=== PATIENT | male | born 1940 | race Caucasian/White ===

== ENCOUNTER 2018-12-28 09:15 | Emergency (ER) | payer MEDICARE ==
[~2018-12-28] VITALS: Ht 177.8 cm; Wt 86.4 kg
[~2018-12-28 09:15] MED LIST: ACET-2615 PO; ACET-3068 PO; ASPI81TA52 PO; CARV-50 PO; DOCU100C40 PO; FERR325T28 PO; FLO0.4C PO; GLIP5TAB26 PO; LISI-604 PO; METF1000 PO; MULT-38 PO; OMEP20TA23 PO; SIMV40TA4 PO
[2018-12-28 09:50] LABS: BASOPHILS % (AUTO) 0.4 % (0-1); EOSINOPHILS # (AUTO) 0.1 X10'3 (0-0.9); EOSINOPHILS % (AUTO) 1.2 % (0-6); HEMATOCRIT 38.2 % (42.0-52.0); HEMOGLOBIN 12.4 g/dl (14.0-17.9); LYMPHOCYTES # (AUTO) 2.3 X10'3 (1.1-4.8); LYMPHOCYTES % (AUTO) 20.7 % (21-51); MEAN CORPUSCULAR HEMOGLOBIN 31.8 PG (27.0-31.0); MEAN CORPUSCULAR HGB CONC 32.6 g/dL (33.0-36.5); MEAN CORPUSCULAR VOLUME 97.5 FL (78-98); MEAN PLATELET VOLUME 9.1 FL (7.4-10.4); MONOCYTES # (AUTO) 0.9 X10'3 (0-0.9); MONOCYTES % (AUTO) 8.3 % (2-12); NEUTROPHILS # (AUTO) 7.7 X10'3 (1.8-7.7); NEUTROPHILS % (AUTO) 69.4 % (42-75); PLATELET COUNT 155 X10'3 (140-440); RED BLOOD COUNT 3.92 X10'6 (4.70-6.10); WHITE BLOOD COUNT 11.1 X10'3 (4.5-11.0)
[2018-12-28 10:04] LABS: ALANINE AMINOTRANSFERASE 26 U/L (12-78); ALBUMIN 3.7 G/DL (3.4-5.0); ALBUMIN/GLOBULIN RATIO 0.9 (1.1-1.5); ALKALINE PHOSPHATASE 66 IU/L (46-116); ANION GAP 7 (8-16); ASPARTATE AMINO TRANSFERASE 14 U/L (10-37); BILIRUBIN,TOTAL 0.5 MG/DL (0.1-1.0); BLOOD UREA NITROGEN 43 MG/DL (7-18); BUN/CREATININE RATIO 27.6 (5.4-32.0); CALCIUM 9.5 MG/DL (8.5-10.1); CHLORIDE 102 MMOL/L (99-107); CREATININE 1.56 MG/DL (0.60-1.10); GLUCOSE 242 MG/DL (70-104); LIPASE 193 U/L (73-393); POTASSIUM 5.2 MMOL/L (3.5-5.1); SODIUM 131 MMOL/L (135-145); TOTAL CARBON DIOXIDE 21.7 MMOL/L (24-32); TOTAL PROTEIN 7.6 G/DL (6.4-8.2); eGFR 43 ML/MIN
[2018-12-28] MEDS ORDERED: normal saline 1000ML IV soln IVB ONE (10:15)
[2018-12-28 10:20] LABS: UA COLLECTION TYPE URINAL
[2018-12-28 10:21] LABS: CLARITY,URINE CLEAR (Clear); COLOR,URINE YELLOW (Yellow); GLUCOSE, URINE 100 mg/dl (Neg); KETONES,URINE NEGATIVE (Neg); LEUKOCYTE ESTERASE ,URINE NEGATIVE (Neg); NITRITES, URINE NEGATIVE (Neg); OCCULT BLOOD,URINE NEGATIVE (Neg); PH,URINE 5.5 (4.8-8.0); PROTEIN,URINE NEGATIVE (Neg); UROBILINOGEN,URINE 0.2 E.U/dL (0.2-1.0)
[2018-12-28] MEDS ORDERED: pantoprazole 40 MG vial IV ONE (10:50)
[2018-12-28] MEDS ORDERED: ESOMEPRAZOLE 40 MG VIAL IV ONE (10:55)
[2018-12-28] MEDS ORDERED: SUCR1ORA12 PO (11:53)
[2018-12-28] MEDS ORDERED: PANT40TA4 PO (11:53)
[2018-12-28] MEDS ORDERED: FURO-150 PO (11:56)
[2018-12-28 12:30] VITALS: BP 132/64
== END 2018-12-28 12:32 | disposition home or self-care (01) ==
LOC: ER 09:16
DX: K29.80 Duodenitis without bleeding (principal); E87.5 Hyperkalemia; I25.10 Atherosclerotic heart disease of native coronary artery without angina pectoris; I50.9 Heart failure, unspecified; E11.9 Type 2 diabetes mellitus without complications; Z95.1 Presence of aortocoronary bypass graft; Z88.6 Allergy status to analgesic agent; Z79.82 Long term (current) use of aspirin; Z79.84 Long term (current) use of oral hypoglycemic drugs; Z79.899 Other long term (current) drug therapy
CPT/HCPCS: 36415; 74176; 80053; 81003; 83690; 85025; 93005; 96361; 96374; 99284; J7030

== ENCOUNTER 2023-01-10 14:24 | Emergency (ER) | payer MEDICARE, MEDICAID ==
[~2023-01-10] VITALS: Ht 177.8 cm; Wt 100.0 kg
[~2023-01-10 14:24] MED LIST changes: -ACET-2615 PO; -ACET-3068 PO; -ASPI81TA52 PO; +ATOR40TA72 PO; +CITA20TA17 PO; -DOCU100C40 PO; -FERR325T28 PO; -FLO0.4C PO; -LISI-604 PO; +LISI10TA27 PO; +METF-438 PO; -METF1000 PO; -MULT-38 PO; -OMEP20TA23 PO; +PANT40TA54 PO; -SIMV40TA4 PO
[2023-01-10] MEDS ORDERED: pantoprazole 40mg IV 80 MG in normal saline 100ml IV soln 100 ML IV ONE (15:00)
[2023-01-10] MEDS ORDERED: ondansetron/PF 4mg/2ml inj IV ONE (15:00)
[2023-01-10 16:47] LABS: BASOPHILS # (AUTO) 0.1 X10'3 (0-0.2); BASOPHILS % (AUTO) 1.2 % (0-1); EOSINOPHILS # (AUTO) 0.1 X10'3 (0-0.9); EOSINOPHILS % (AUTO) 1.3 % (0-6); LYMPHOCYTES # (AUTO) 1.1 X10'3 (1.1-4.8); LYMPHOCYTES % (AUTO) 13.2 % (21-51); MEAN CORPUSCULAR HEMOGLOBIN 34.3 PG (27.0-31.0); MEAN CORPUSCULAR HGB CONC 32.7 g/dL (33.0-36.5); MEAN CORPUSCULAR VOLUME 104.8 FL (78-98); MEAN PLATELET VOLUME 10.8 FL (7.4-10.4); MONOCYTES # (AUTO) 0.8 X10'3 (0-0.9); MONOCYTES % (AUTO) 9.5 % (2-12); NEUTROPHILS # (AUTO) 6.2 X10'3 (1.8-7.7); NEUTROPHILS % (AUTO) 74.8 % (42-75); PLATELET COUNT 104 X10'3 (140-440); RED BLOOD COUNT 2.03 X10'6 (4.70-6.10); RED CELL DISTRIBUTION WIDTH 13.1 % (11.5-14.5); WHITE BLOOD COUNT 8.3 X10'3 (4.5-11.0)
[2023-01-10 16:52] LABS: HEMATOCRIT 21.3 % (42.0-52.0)
[2023-01-10 17:01] LABS: ALANINE AMINOTRANSFERASE 44 U/L (12-78); ALBUMIN 2.4 G/DL (3.4-5.0); ALBUMIN/GLOBULIN RATIO 0.7 (1.1-1.5); ALKALINE PHOSPHATASE 53 IU/L (46-116); ANION GAP 10 (8-16); ASPARTATE AMINO TRANSFERASE 34 U/L (10-37); BILIRUBIN,TOTAL 0.3 MG/DL (0.1-1.0); BLOOD UREA NITROGEN 49 MG/DL (7-18); BUN/CREATININE RATIO 26.1 (10.0-20.0); CALCIUM 8.4 MG/DL (8.5-10.1); CHLORIDE 102 MMOL/L (99-107); CREATININE 1.88 MG/DL (0.60-1.10); GLUCOSE 342 MG/DL (70-104); SODIUM 134 MMOL/L (135-145); TOTAL CARBON DIOXIDE 22.1 MMOL/L (24-32); eGFR 34 ML/MIN
[2023-01-10 17:19] LABS: HYPOCHROMASIA 1+; LARGE PLATELETS FEW; PLATELET ESTIMATE DECREASED; POLYCHROMASIA 1+; ROULEAUX 1+
--- NOTE | 2023-01-10 18:32 | NUR ---
[facility] TRANSPORT BACK TO [facility].
--- NOTE | 2023-01-10 18:33 | NUR ---
ASSUMED CARE FROM TYESHA JONES
--- NOTE | 2023-01-10 19:52 | NUR ---
PT BACK TO [facility] WITH DONALD CARGO VIA GURNEY
[2023-01-10 19:53] VITALS: BP 148/75
[2023-01-10 21:09] LABS: OCCULT BLOOD STOOL NEGATIVE (Neg)
== END 2023-01-10 19:45 | disposition home or self-care (01) ==
LOC: ER 14:25
DX: D64.9 Anemia, unspecified (principal); N18.9 Chronic kidney disease, unspecified; I50.9 Heart failure, unspecified; E11.9 Type 2 diabetes mellitus without complications; Z88.6 Allergy status to analgesic agent; Z88.5 Allergy status to narcotic agent
CPT/HCPCS: 36415; 80053; 82272; 85008; 85025; 96374; 99285; C9113; J3490

== ENCOUNTER 2023-02-12 12:01 | Inpatient (IN) | payer MEDICARE, MEDICAID ==
[~2023-02-12] VITALS: Ht 177.8 cm; Wt 80.5 kg
[2023-02-12 13:17] LABS: BASOPHILS # (AUTO) 0.1 X10'3 (0-0.2); BASOPHILS % (AUTO) 0.5 % (0-1); EOSINOPHILS # (AUTO) 0.1 X10'3 (0-0.9); EOSINOPHILS % (AUTO) 0.8 % (0-6); HEMATOCRIT 24.8 % (42.0-52.0); HEMOGLOBIN 7.8 g/dl (14.0-17.9); LYMPHOCYTES # (AUTO) 1.5 X10'3 (1.1-4.8); LYMPHOCYTES % (AUTO) 14.9 % (21-51); MEAN CORPUSCULAR HEMOGLOBIN 32.4 PG (27.0-31.0); MEAN CORPUSCULAR HGB CONC 31.6 g/dL (33.0-36.5); MEAN CORPUSCULAR VOLUME 102.5 FL (78-98); MEAN PLATELET VOLUME 9.6 FL (7.4-10.4); MONOCYTES # (AUTO) 0.8 X10'3 (0-0.9); MONOCYTES % (AUTO) 8.2 % (2-12); NEUTROPHILS # (AUTO) 7.4 X10'3 (1.8-7.7); NEUTROPHILS % (AUTO) 75.6 % (42-75); PLATELET COUNT 100 X10'3 (140-440); RED BLOOD COUNT 2.42 X10'6 (4.70-6.10); RED CELL DISTRIBUTION WIDTH 15.3 % (11.5-14.5); WHITE BLOOD COUNT 9.8 X10'3 (4.5-11.0)
[2023-02-12 13:39] LABS: ALANINE AMINOTRANSFERASE 29 U/L (12-78); ALBUMIN 3.4 G/DL (3.4-5.0); ALBUMIN/GLOBULIN RATIO 0.9 (1.1-1.5); ALKALINE PHOSPHATASE 92 IU/L (46-116); ANION GAP 12 (8-16); ASPARTATE AMINO TRANSFERASE 18 U/L (10-37); BILIRUBIN,TOTAL 0.3 MG/DL (0.1-1.0); BLOOD UREA NITROGEN 110 MG/DL (7-18); BUN/CREATININE RATIO 38.3 (10.0-20.0); CALCIUM 9.3 MG/DL (8.5-10.1); CHLORIDE 103 MMOL/L (99-107); CREATININE 2.87 MG/DL (0.60-1.10); GLUCOSE 198 MG/DL (70-104); PRO BRAIN NATRIURETIC PEPTIDE 9543 PG/ML (0-450); SODIUM 130 MMOL/L (135-145); TOTAL CARBON DIOXIDE 15.3 MMOL/L (24-32); eCRCL 20 ML/MIN; eGFR 21 ML/MIN
[2023-02-12 13:45] LABS: POTASSIUM 6.5 MMOL/L (3.5-5.1)
[2023-02-12] MEDS ORDERED: calcium chloride 100 MG/1 ML inj IV ONE (14:20)
[2023-02-12] MEDS ORDERED: insulin regular, human 10 units/0.1 ml syringe IV ONE (14:20)
[2023-02-12] MEDS ORDERED: dextrose 50%-water 50ml dispensing syringe IV ONE (14:20)
[2023-02-12] MEDS ORDERED: sodium bicarbonate (8.4%) 1 mEq/ml syringe IV ONE (14:30)
[2023-02-12] MEDS ORDERED: albumin (human) 25% 100 ML IV solution IV ONE (14:30)
[2023-02-12] MEDS ORDERED: ondansetron 4 MG/5 ML oral solution 5ml CUP PO ONE (14:33)
[2023-02-12] MEDS ORDERED: sodium polystyrene sulfonate 15gm/60ml oral suspension PO ONE (14:35)
[2023-02-12] MEDS: normal saline 1000ml 1,000 ML IV SCH ×3 (15:00→17:30)
[2023-02-12 15:58] LABS: MAGNESIUM 1.6 MG/DL (1.5-2.4); PHOSPHORUS 5.4 MG/DL (2.3-4.5)
[2023-02-12] MEDS ORDERED: acetaminophen 325mg tablet PO PRN (16:25)
[2023-02-12] MEDS ORDERED: DEXTROSE 15 GM of carb/4 tabs (each vial/BOTTLE has 4 tablets) PO PRN ×2 (16:25)
[2023-02-12] MEDS ORDERED: dextrose 50%-water 50ml dispensing syringe IV PRN ×2 (16:25)
[2023-02-12] MEDS ORDERED: glucagon, human recombinant 1mg kit SUBCUT PRN (16:25)
[2023-02-12] MEDS ORDERED: ondansetron/PF 4mg/2ml inj IV PRN (16:25)
[2023-02-12] MEDS ORDERED: magnesium hydroxide 30ml (MOM) UD suspension PO PRN (16:25)
[2023-02-12] MEDS ORDERED: mag hydrox/Alum hydrox/simeth 30ml oral suspension PO PRN (16:25)
[2023-02-12] MEDS ORDERED: MESSAGE TO PHARMACY PO ONE (16:25)
[2023-02-12 16:40] LABS: BILIRUBIN,URINE NEGATIVE (Neg); CLARITY,URINE SLIGHTLY CLOUDY (Clear); COLOR,URINE YELLOW (Yellow); GLUCOSE, URINE NEGATIVE (Neg); KETONES,URINE NEGATIVE (Neg); LEUKOCYTE ESTERASE ,URINE SMALL (Neg); NITRITES, URINE NEGATIVE (Neg); OCCULT BLOOD,URINE NEGATIVE (Neg); PH,URINE 5.5 (4.8-8.0); PROTEIN,URINE NEGATIVE (Neg); UROBILINOGEN,URINE 0.2 E.U/dL (0.2-1.0)
[2023-02-12 16:45] LABS: UA COLLECTION TYPE VOIDED
[2023-02-12 16:51] LABS: BACTERIA,URINE 3+ /HPF (Neg); RBC,URINE NONE SEEN /HPF (0-2); WBC,URINE 50-100 /HPF (0-4)
[2023-02-12 16:52] LABS: SQUAMOUS EPITHELIAL CELL,UR FEW /LPF (FEW); WBC CLUMPS,URINE MODERATE /HPF (NEGATIVE)
[2023-02-12 17:05] LABS: ACETONE NEGATIVE (NEGATIVE)
[2023-02-12] MEDS: docusate sod 100mg capsule PO SCH (19:50)
[2023-02-12] MEDS: heparin, porcine 5000 units/ml vial SQ SCH (20:00)
--- NOTE | 2023-02-12 22:45 | NUR ---
Patient in room ORTHO 4014. I have received report from KM Pereyra and had the opportunity to ask questions and assume patient care.
--- NOTE | 2023-02-12 22:55 | NUR ---
REPORT CALLED TO FLOOR NURSE. TX TO ROOM 4014 BY NURSE.
--- NOTE | 2023-02-12 23:20 | NUR ---
pt arrived to floor via wc. oriented to room. in bed. call light in reach.
[2023-02-12 23:30] VITALS: BP 172/69; PULSE 78; RESP 15; RESP 16; TEMP 98.7; O2SAT 97
[2023-02-13] MEDS: normal saline 1000ml 1,000 ML IV SCH ×5 (00:02→18:30)
[2023-02-13 06:00] VITALS: BP 141/60; PULSE 84; RESP 15; TEMP 98.1; O2SAT 96
--- NOTE | 2023-02-13 06:37 | NUR ---
Patient in room ORTHO 4014. I have received report from TYESHA Roach and had the opportunity to ask questions and assume patient care.
[2023-02-13 06:47] LABS: ALANINE AMINOTRANSFERASE 27 U/L (12-78); ALBUMIN 3.2 G/DL (3.4-5.0); ALKALINE PHOSPHATASE 81 IU/L (46-116); ANION GAP 11 (8-16); ASPARTATE AMINO TRANSFERASE 15 U/L (10-37); BASOPHILS % (AUTO) 0.6 % (0-1); BILIRUBIN,TOTAL 0.3 MG/DL (0.1-1.0); BLOOD UREA NITROGEN 87 MG/DL (7-18); BUN/CREATININE RATIO 42.9 (10.0-20.0); CHLORIDE 112 MMOL/L (99-107); CREATININE 2.03 MG/DL (0.60-1.10); EOSINOPHILS # (AUTO) 0.1 X10'3 (0-0.9); GLUCOSE 160 MG/DL (70-104); HEMATOCRIT 22.6 % (42.0-52.0); HEMOGLOBIN 7.4 g/dl (14.0-17.9); LYMPHOCYTES # (AUTO) 1.3 X10'3 (1.1-4.8); LYMPHOCYTES % (AUTO) 21.8 % (21-51); MEAN CORPUSCULAR HEMOGLOBIN 32.8 PG (27.0-31.0); MEAN CORPUSCULAR HGB CONC 32.5 g/dL (33.0-36.5); MEAN CORPUSCULAR VOLUME 100.7 FL (78-98); MONOCYTES # (AUTO) 0.5 X10'3 (0-0.9); MONOCYTES % (AUTO) 9.3 % (2-12); NEUTROPHILS # (AUTO) 3.9 X10'3 (1.8-7.7); NEUTROPHILS % (AUTO) 67.3 % (42-75); PLATELET COUNT 97 X10'3 (140-440); POTASSIUM 4.9 MMOL/L (3.5-5.1); RED BLOOD COUNT 2.25 X10'6 (4.70-6.10); RED CELL DISTRIBUTION WIDTH 14.8 % (11.5-14.5); SODIUM 142 MMOL/L (135-145); TOTAL CARBON DIOXIDE 18.9 MMOL/L (24-32); TOTAL PROTEIN 6.3 G/DL (6.4-8.2); WHITE BLOOD COUNT 5.8 X10'3 (4.5-11.0); eCRCL 28 ML/MIN; eGFR 31 ML/MIN
[2023-02-13] MEDS: heparin, porcine 5000 units/ml vial SQ SCH ×2 (08:00→20:00)
[2023-02-13] MEDS: docusate sod 100mg capsule PO SCH ×2 (08:00→20:28)
[2023-02-13] MEDS ORDERED: FLO0.4C PO (08:59)
[2023-02-13] MEDS ORDERED: FERR324T4 PO (09:01)
[2023-02-13] MEDS ORDERED: CHOL200074 PO (09:02)
[2023-02-13] MEDS ORDERED: ASCO250T48 PO (09:03)
[2023-02-13] MEDS ORDERED: INSU100I8 SQ (09:04)
[2023-02-13] MEDS ORDERED: TRAM50TA2 PO (09:07)
[2023-02-13 10:32] VITALS: BP 127/64; PULSE 89; RESP 16; TEMP 98.2; O2SAT 96
[2023-02-13 18:00] VITALS: BP 167/67; PULSE 90; RESP 20; TEMP 98.3; O2SAT 96
--- NOTE | 2023-02-13 18:24 | NUR ---
Problems reprioritized. Patient report given, questions answered & plan of care reviewed with TYESHA Lee.
--- NOTE | 2023-02-13 18:25 | NUR ---
Patient in room ORTHO 4014. I have received report from TYESHA Ross and had the opportunity to ask questions and assume patient care.
--- NOTE | 2023-02-13 18:33 | NUR ---
Problems reprioritized. Patient report given, questions answered & plan of care reviewed with
[2023-02-13 20:00] VITALS: RESP 20; O2SAT 96
[2023-02-13] MEDS: insulin Lispro (HumaLOG) vial - multi-dose SQ SCH (20:28)
[2023-02-13 22:00] VITALS: BP 162/68; PULSE 53; RESP 13; TEMP 97.4; O2SAT 97
[2023-02-14] MEDS: normal saline 1000ml 1,000 ML IV SCH ×4 (02:30→22:57)
[2023-02-14 06:00] VITALS: BP 170/66; PULSE 60; RESP 16; TEMP 97; O2SAT 96
--- NOTE | 2023-02-14 06:25 | NUR ---
Patient in room ORTHO 4014. I have received report from Rosa and had the opportunity to ask questions and assume patient care.
--- NOTE | 2023-02-14 07:06 | NUR ---
Problems reprioritized. Patient report given, questions answered & plan of care reviewed with TYESHA Ross.
[2023-02-14] MEDS: ferrous sulfate 325mg tablet PO SCH ×2 (07:30→17:37)
[2023-02-14] MEDS: docusate sod 100mg capsule PO SCH ×2 (07:54→20:00)
[2023-02-14] MEDS: heparin, porcine 5000 units/ml vial SQ SCH ×2 (08:00→20:00)
[2023-02-14 08:03] LABS: EOSINOPHILS # (AUTO) 0.1 X10'3 (0-0.9); HEMOGLOBIN 8.4 g/dl (14.0-17.9); MEAN CORPUSCULAR HEMOGLOBIN 32.3 PG (27.0-31.0); NEUTROPHILS # (AUTO) 4.9 X10'3 (1.8-7.7); RED BLOOD COUNT 2.59 X10'6 (4.70-6.10); RED CELL DISTRIBUTION WIDTH 14.9 % (11.5-14.5)
[2023-02-14 08:04] LABS: BASOPHILS % (AUTO) 0.6 % (0-1); EOSINOPHILS % (AUTO) 1.3 % (0-6); LYMPHOCYTES % (AUTO) 26.3 % (21-51); MEAN CORPUSCULAR HGB CONC 32.2 g/dL (33.0-36.5); MEAN CORPUSCULAR VOLUME 100.2 FL (78-98); MEAN PLATELET VOLUME 9.7 FL (7.4-10.4); MONOCYTES # (AUTO) 0.7 X10'3 (0-0.9); MONOCYTES % (AUTO) 8.9 % (2-12); NEUTROPHILS % (AUTO) 62.9 % (42-75); PLATELET COUNT 120 X10'3 (140-440); WHITE BLOOD COUNT 7.7 X10'3 (4.5-11.0)
[2023-02-14 08:34] LABS: ALANINE AMINOTRANSFERASE 31 U/L (12-78); ALBUMIN 3.5 G/DL (3.4-5.0); ALKALINE PHOSPHATASE 95 IU/L (46-116); ANION GAP 13 (8-16); ASPARTATE AMINO TRANSFERASE 18 U/L (10-37); BILIRUBIN,TOTAL 0.3 MG/DL (0.1-1.0); BLOOD UREA NITROGEN 60 MG/DL (7-18); BUN/CREATININE RATIO 37.7 (10.0-20.0); CALCIUM 9.1 MG/DL (8.5-10.1); CHLORIDE 110 MMOL/L (99-107); CREATININE 1.59 MG/DL (0.60-1.10); GLUCOSE 194 MG/DL (70-104); POTASSIUM 4.5 MMOL/L (3.5-5.1); SODIUM 140 MMOL/L (135-145); TOTAL CARBON DIOXIDE 16.8 MMOL/L (24-32); TOTAL PROTEIN 6.9 G/DL (6.4-8.2); eCRCL 36 ML/MIN; eGFR 42 ML/MIN
[2023-02-14] MEDS: ascorbic acid 500mg tablet PO SCH ×2 (08:36→19:58)
[2023-02-14] MEDS: atorvastatin 20mg tablet PO SCH (08:36)
[2023-02-14] MEDS: insulin Lispro (HumaLOG) vial - multi-dose SQ SCH ×2 (08:42→20:05)
--- NOTE | 2023-02-14 14:29 | NUR ---
PRESSURE ULCER EDUCATION: DEFINITION: A pressure ulcer is an area of skin that breaks down when you stay in one position too long. The constant pressure against the skin reduces the blood flow to that area and the affected tissue dies. CAUSES: "Being bedridden or in a wheelchair "Fragile skin "Having a chronic condition, such as diabetes or vascular disease "Inability to move certain parts of your body without assistance "Older age "Incontinence of urine or stool SYMPTOMS: "A reddened area that DOES NOT turn white when pressed on - this can be the beginning of a pressure ulcer "A blister, deep sore or a crater - these can be advanced pressure ulcers FIRST AID: "Relieve the pressure on this area "Keep the area clean and dry "Call your primary doctor if you see any of the above symptoms "DO NOT massage the area "DO NOT use a donut shaped or ring shaped pillow- these actually interfere with the blood flow and cause complications PREVENTION: "Check for pressure ulcers everyday "Change position at least every two hours to relieve pressure "Use items that help relieve pressure- pillows, sheepskin, foam padding, and powders. "Keep skin clean and dry "Eat healthy well balanced meals "Exercise daily IF YOU SEE ANY OF THESE SYMPTOMS WHILE IN THE HOSPITAL - TELL YOUR NURSE IMMEDIATELY. IF YOU SEE ANY OF THESE SYMPTOMS WHILE AT HOME OR HAVE ANY QUESTIONS OR CONCERNS ABOUT PRESSURE ULCERS - CALL YOUR PRIMARY DOCTOR IMMEDIATELY. Addendum: 02/14/23 at 1429 by Rachel Cody RN Amended: Links added.
--- NOTE | 2023-02-14 14:37 | NUR ---
PAGER ID: [phone] MESSAGE: Is Efrain Davis in [id number] getting discharged? Piv came out and wondering if we can leave it out? -Vandana [phone]
[2023-02-14] MEDS: amoxicillin 250mg capsule PO SCH (16:00)
--- NOTE | 2023-02-14 17:30 | NUR ---
PAGER ID: [phone] MESSAGE: Efrain Davis in [phone] - iv is out and pt does not want another one. Is it ok to leave out? -Vandana [phone]
[2023-02-14 18:00] VITALS: BP 179/89; PULSE 100; RESP 17; TEMP 97.7; O2SAT 96
[2023-02-14 20:00] VITALS: RESP 18; O2SAT 96
[2023-02-14] MEDS ORDERED: citalopram 20mg tablet PO SCH (21:00)
[2023-02-14 22:00] VITALS: BP 123/75; PULSE 94; RESP 16; TEMP 98.3; O2SAT 99
[2023-02-15] MEDS: amoxicillin 250mg capsule PO SCH ×2 (00:06→08:49)
[2023-02-15 06:32] LABS: BASOPHILS % (AUTO) 0.5 % (0-1); EOSINOPHILS # (AUTO) 0.1 X10'3 (0-0.9); EOSINOPHILS % (AUTO) 1.5 % (0-6); HEMATOCRIT 25.1 % (42.0-52.0); HEMOGLOBIN 7.9 g/dl (14.0-17.9); LYMPHOCYTES % (AUTO) 24.3 % (21-51); MEAN CORPUSCULAR HEMOGLOBIN 32.6 PG (27.0-31.0); MEAN CORPUSCULAR HGB CONC 31.6 g/dL (33.0-36.5); MEAN CORPUSCULAR VOLUME 103.1 FL (78-98); MEAN PLATELET VOLUME 9.3 FL (7.4-10.4); MONOCYTES # (AUTO) 0.9 X10'3 (0-0.9); MONOCYTES % (AUTO) 10.6 % (2-12); NEUTROPHILS # (AUTO) 5.1 X10'3 (1.8-7.7); NEUTROPHILS % (AUTO) 63.1 % (42-75); PLATELET COUNT 117 X10'3 (140-440); RED BLOOD COUNT 2.43 X10'6 (4.70-6.10); RED CELL DISTRIBUTION WIDTH 15.4 % (11.5-14.5); WHITE BLOOD COUNT 8.1 X10'3 (4.5-11.0)
--- NOTE | 2023-02-15 06:36 | NUR ---
Patient in room ORTHO 4014. I have received report from Marzena ARAMBULA and had the opportunity to ask questions and assume patient care.
--- NOTE | 2023-02-15 06:44 | NUR ---
Problems reprioritized. Patient report given, questions answered & plan of care reviewed with Cholo Baca RN.
[2023-02-15 06:46] VITALS: BP 159/73; PULSE 96; RESP 18; TEMP 97.5; O2SAT 96
[2023-02-15 06:46] LABS: ALANINE AMINOTRANSFERASE 28 U/L (12-78); ALBUMIN/GLOBULIN RATIO 0.9 (1.1-1.5); ALKALINE PHOSPHATASE 84 IU/L (46-116); ANION GAP 13 (8-16); ASPARTATE AMINO TRANSFERASE 16 U/L (10-37); BILIRUBIN,TOTAL 0.3 MG/DL (0.1-1.0); BLOOD UREA NITROGEN 48 MG/DL (7-18); BUN/CREATININE RATIO 34.8 (10.0-20.0); CALCIUM 8.9 MG/DL (8.5-10.1); CHLORIDE 113 MMOL/L (99-107); CREATININE 1.38 MG/DL (0.60-1.10); GLUCOSE 158 MG/DL (70-104); POTASSIUM 4.8 MMOL/L (3.5-5.1); SODIUM 143 MMOL/L (135-145); TOTAL CARBON DIOXIDE 17.4 MMOL/L (24-32); TOTAL PROTEIN 6.3 G/DL (6.4-8.2); eCRCL 41 ML/MIN; eGFR 49 ML/MIN
[2023-02-15 08:00] VITALS: RESP 18
[2023-02-15] MEDS: atorvastatin 20mg tablet PO SCH (08:49)
[2023-02-15] MEDS: ferrous sulfate 325mg tablet PO SCH (08:49)
[2023-02-15] MEDS: ascorbic acid 500mg tablet PO SCH (08:49)
[2023-02-15] MEDS: docusate sod 100mg capsule PO SCH (08:50)
[2023-02-15] MEDS: heparin, porcine 5000 units/ml vial SQ SCH (08:51)
[2023-02-15] MEDS: insulin Lispro (HumaLOG) vial - multi-dose SQ SCH (09:07)
[2023-02-15] MEDS: normal saline 1000ml 1,000 ML IV SCH (09:11)
[2023-02-15 10:11] VITALS: BP 112/75; PULSE 94; RESP 18; TEMP 100; O2SAT 97
--- NOTE | 2023-02-15 11:00 | NUR ---
PAGER ID: [phone] MESSAGE: Cholo Hugo [phone] re: [id number] Tom Davis Patient needs Rx for insulin needles and lancets upon discharge. I have yellow Rx for patient when you round. Thanks Cholo.
[2023-02-15 11:03] VITALS: TEMP 99.3
--- NOTE | 2023-02-15 14:51 | NUR ---
Patient discharged home with no new antibiotics or new medications. Patient left with all belongings at time of discharge. Patient was educated and verbally expressed understanding at the time of discharge. Patient IV taken out by another nurse at discharge and patient taken to private vehicle via wheelchair.
== END 2023-02-15 14:45 | disposition home or self-care (01) | DRG 640 ==
LOC: ER 12:02 → ED HOLD 16:25 → ORTHO 4S 23:27
PROVIDERS: ADMIT Internal Medicine; ATTEND Internal Medicine
DX: E87.5 Hyperkalemia (principal); N17.0 Acute kidney failure with tubular necrosis; L97.429 Non-pressure chronic ulcer of left heel and midfoot with unspecified severity; Z66 Do not resuscitate; E11.22 Type 2 diabetes mellitus with diabetic chronic kidney disease; N18.9 Chronic kidney disease, unspecified; D63.8 Anemia in other chronic diseases classified elsewhere; E78.5 Hyperlipidemia, unspecified; F32.A Depression, unspecified; I25.10 Atherosclerotic heart disease of native coronary artery without angina pectoris; E11.621 Type 2 diabetes mellitus with foot ulcer; I50.9 Heart failure, unspecified; Z88.6 Allergy status to analgesic agent; Z95.1 Presence of aortocoronary bypass graft; Z79.899 Other long term (current) drug therapy
CPT/HCPCS: 36415; 71045; 80053; 81001; 82009; 82948; 83605; 83735; 83880; 84100; 84484; 85025; 86885; 86900; 86901; 87077; 87081; 87088; 87186; 93005; 97116; 97161; 97530; 99285; A6258; G0378; J1644; J1815; J2405; J3490; J7030; P9047

== ENCOUNTER 2023-03-08 15:20 | Inpatient (IN) | payer MEDICARE, MEDICAID ==
[~2023-03-08] VITALS: Ht 177.8 cm; Wt 80.5 kg
[~2023-03-08 15:20] MED LIST changes: +ASCO250T48 PO; +CHOL200074 PO; +FERR324T4 PO; +FLO0.4C PO; +INSU100I8 SQ; -LISI10TA27 PO; -METF-438 PO; -PANT40TA54 PO; +TRAM50TA2 PO
[2023-03-08 17:07] LABS: BASOPHILS % (AUTO) 0.4 % (0-1); EOSINOPHILS # (AUTO) 0.1 X10'3 (0-0.9); EOSINOPHILS % (AUTO) 1.3 % (0-6); HEMATOCRIT 30.4 % (42.0-52.0); HEMOGLOBIN 9.4 g/dl (14.0-17.9); LYMPHOCYTES # (AUTO) 2.1 X10'3 (1.1-4.8); LYMPHOCYTES % (AUTO) 21.5 % (21-51); MEAN CORPUSCULAR HEMOGLOBIN 31.4 PG (27.0-31.0); MEAN CORPUSCULAR VOLUME 101.3 FL (78-98); MEAN PLATELET VOLUME 8.6 FL (7.4-10.4); MONOCYTES # (AUTO) 0.8 X10'3 (0-0.9); MONOCYTES % (AUTO) 8.2 % (2-12); NEUTROPHILS # (AUTO) 6.6 X10'3 (1.8-7.7); NEUTROPHILS % (AUTO) 68.6 % (42-75); PLATELET COUNT 186 X10'3 (140-440); RED CELL DISTRIBUTION WIDTH 16.1 % (11.5-14.5); WHITE BLOOD COUNT 9.7 X10'3 (4.5-11.0)
[2023-03-08 17:18] LABS: ALANINE AMINOTRANSFERASE 49 U/L (12-78); ALBUMIN 3.8 G/DL (3.4-5.0); ALBUMIN/GLOBULIN RATIO 1.1 (1.1-1.5); ALKALINE PHOSPHATASE 100 IU/L (46-116); ANION GAP 11 (8-16); ASPARTATE AMINO TRANSFERASE 24 U/L (10-37); BILIRUBIN,TOTAL 0.2 MG/DL (0.1-1.0); BLOOD UREA NITROGEN 56 MG/DL (7-18); BUN/CREATININE RATIO 35.9 (10.0-20.0); CALCIUM 9.2 MG/DL (8.5-10.1); CHLORIDE 110 MMOL/L (99-107); CREATININE 1.56 MG/DL (0.60-1.10); GLUCOSE 156 MG/DL (70-104); MAGNESIUM 1.3 MG/DL (1.5-2.4); SODIUM 138 MMOL/L (135-145); TOTAL CARBON DIOXIDE 17.1 MMOL/L (24-32); TOTAL PROTEIN 7.4 G/DL (6.4-8.2); eCRCL 36 ML/MIN; eGFR 43 ML/MIN
[2023-03-08 17:20] LABS: POTASSIUM 6.5 MMOL/L (3.5-5.1)
--- NOTE | 2023-03-08 17:21 | NUR ---
PT K 6.5. RN NOTIFIED DR MATTHEWS.
--- NOTE | 2023-03-08 17:23 | NUR ---
PER DR MATTHEWS NOTIFY CAN WORKER DONNA AND HAVE EKG DONE RIGHT AWAY FOR K 6.5. EKG ORD. [facility] WILL OBTAIN E[facility] NOW.
--- NOTE | 2023-03-08 17:53 | NUR ---
Student documentation: I have reviewed interventions, assessments performed and documented by Myrtle KENNEDY of [facility]. Student Medication Administration: For all medication-pass' in the time frame of 0600 - 1830, all medication were reviewed, dispensed, administered and documented per hospital policy by Myrtle KENNEDY of [facility] .
[2023-03-08] MEDS ORDERED: calcium gluconate inj. 1 GM in normal saline 100ml IV soln 100 ML IV ONE (18:25)
[2023-03-08] MEDS ORDERED: insulin regular, human U-100 3ml vial - multi-dose IV ONE (18:25)
[2023-03-08] MEDS ORDERED: dextrose 50%-water 50ml dispensing syringe IV ONE (18:25)
[2023-03-08] MEDS ORDERED: sodium polystyrene sulfonate 15gm/60ml oral suspension PO ONE (18:25)
[2023-03-08] MEDS ORDERED: CALCIUM GLUC 1gm/50ml NACL,iso 50 ML IV ONE (18:29)
[2023-03-08] MEDS ORDERED: insulin regular, human 10 units/0.1 ml syringe IV ONE (19:20)
[2023-03-08] MEDS ORDERED: temazepam 15mg capsule PO PRN (21:00)
[2023-03-08] MEDS ORDERED: acetaminophen 650mg rectal suppository RC PRN (22:00)
[2023-03-08] MEDS ORDERED: magnesium 4gm in 100ml NS 100 ML IV PRN (22:00)
[2023-03-08] MEDS ORDERED: ondansetron 4mg rapidly disintigrating tab PO PRN (22:00)
[2023-03-08] MEDS ORDERED: diphenhydrAMINE 50 mg/ml inj IV PRN (22:00)
[2023-03-08] MEDS ORDERED: bisacodyl 10mg suppository rectal RC PRN (22:00)
[2023-03-08] MEDS ORDERED: magnesium 2GM in 50ml NS 50 ML IV PRN (22:00)
[2023-03-08] MEDS ORDERED: diphenhydrAMINE 25mg capsule PO PRN (22:00)
[2023-03-08] MEDS ORDERED: ondansetron/PF 4mg/2ml inj IV PRN (22:00)
[2023-03-08] MEDS ORDERED: magnesium hydroxide 30ml (MOM) UD suspension PO PRN (22:00)
[2023-03-08] MEDS ORDERED: magnesium Cl slow-release 64mg tablet PO PRN (22:00)
[2023-03-08] MEDS ORDERED: mag hydrox/Alum hydrox/simeth 30ml oral suspension PO PRN (22:00)
[2023-03-08] MEDS ORDERED: acetaminophen 325mg tablet PO PRN (22:00)
[2023-03-08] MEDS ORDERED: DEXTROSE 15 GM of carb/4 tabs (each vial/BOTTLE has 4 tablets) PO PRN ×2 (22:05)
[2023-03-08] MEDS ORDERED: dextrose 50%-water 50ml dispensing syringe IV PRN ×2 (22:05)
[2023-03-08] MEDS ORDERED: MESSAGE TO PHARMACY PO ONE (22:05)
[2023-03-08] MEDS ORDERED: glucagon, human recombinant 1mg kit SUBCUT PRN (22:05)
[2023-03-08] MEDS ORDERED: insulin Lispro (HumaLOG) vial - multi-dose SQ SCH (22:05)
--- NOTE | 2023-03-08 22:30 | NUR ---
Report given to ortho nurse Sears. SBAR completed.
[2023-03-08 22:49] LABS: APTT 26 SECONDS (22-32); PROTHROMBIN TIME 10.9 SECONDS (9.0-12.0)
[2023-03-08 22:57] LABS: PHOSPHORUS 4.7 MG/DL (2.3-4.5)
[2023-03-08 23:30] VITALS: BP 141/63; PULSE 83; RESP 16; O2SAT 99
[2023-03-08 23:32] LABS: ALBUMIN 3.4 G/DL (3.4-5.0); ANION GAP 13 (8-16); BLOOD UREA NITROGEN 55 MG/DL (7-18); CALCIUM 9.1 MG/DL (8.5-10.1); CHLORIDE 113 MMOL/L (99-107); CREATININE 1.41 MG/DL (0.60-1.10); GLUCOSE 167 MG/DL (70-104); SODIUM 141 MMOL/L (135-145); TOTAL CARBON DIOXIDE 15.5 MMOL/L (24-32); eCRCL 40 ML/MIN; eGFR 48 ML/MIN
[2023-03-08 23:33] VITALS: RESP 18; O2SAT 99
[2023-03-08 23:38] LABS: POTASSIUM 5.8 MMOL/L (3.5-5.1)
[2023-03-09] VITALS (7 sets, daily range): BP systolic 153–176; BP diastolic 71–78; PULSE 80–83; RESP 14–18; TEMP 97.4–98.2; O2SAT 98
[2023-03-09] MEDS: sodium bicarbonate (8.4%) inj. 50 MEQ in dextrose 5%-water 1,000 ML IV SCH ×3 (00:02→16:24)
[2023-03-09] MEDS: acetaminophen 325mg tablet PO PRN ×4 (01:36→19:58)
[2023-03-09 06:13] LABS: BASOPHILS # (AUTO) 0.1 X10'3 (0-0.2); BASOPHILS % (AUTO) 0.6 % (0-1); EOSINOPHILS # (AUTO) 0.1 X10'3 (0-0.9); EOSINOPHILS % (AUTO) 1.4 % (0-6); HEMATOCRIT 28.1 % (42.0-52.0); LYMPHOCYTES # (AUTO) 2.6 X10'3 (1.1-4.8); LYMPHOCYTES % (AUTO) 29.8 % (21-51); MEAN CORPUSCULAR HEMOGLOBIN 32.5 PG (27.0-31.0); MEAN CORPUSCULAR HGB CONC 32.2 g/dL (33.0-36.5); MEAN CORPUSCULAR VOLUME 100.9 FL (78-98); MEAN PLATELET VOLUME 8.8 FL (7.4-10.4); MONOCYTES # (AUTO) 0.7 X10'3 (0-0.9); MONOCYTES % (AUTO) 8.4 % (2-12); NEUTROPHILS # (AUTO) 5.2 X10'3 (1.8-7.7); NEUTROPHILS % (AUTO) 59.8 % (42-75); PLATELET COUNT 168 X10'3 (140-440); RED BLOOD COUNT 2.78 X10'6 (4.70-6.10); RED CELL DISTRIBUTION WIDTH 15.6 % (11.5-14.5); WHITE BLOOD COUNT 8.7 X10'3 (4.5-11.0)
[2023-03-09 06:35] LABS: ALANINE AMINOTRANSFERASE 52 U/L (12-78); ALBUMIN 3.6 G/DL (3.4-5.0); ALBUMIN/GLOBULIN RATIO 1.1 (1.1-1.5); ALKALINE PHOSPHATASE 94 IU/L (46-116); ANION GAP 10 (8-16); ASPARTATE AMINO TRANSFERASE 28 U/L (10-37); BILIRUBIN,TOTAL 0.2 MG/DL (0.1-1.0); BLOOD UREA NITROGEN 53 MG/DL (7-18); BUN/CREATININE RATIO 34.9 (10.0-20.0); CALCIUM 9.1 MG/DL (8.5-10.1); CHLORIDE 110 MMOL/L (99-107); CREATININE 1.52 MG/DL (0.60-1.10); GLUCOSE 165 MG/DL (70-104); SODIUM 138 MMOL/L (135-145); TOTAL CARBON DIOXIDE 18.2 MMOL/L (24-32); eCRCL 37 ML/MIN; eGFR 44 ML/MIN
[2023-03-09] MEDS: docusate sod 100mg capsule PO SCH ×2 (07:56→19:57)
[2023-03-09] MEDS: heparin, porcine 5000 units/ml vial SQ SCH ×2 (07:56→20:05)
[2023-03-09] MEDS: K and/or MAG REPLACEMENT MC SCH ×2 (08:00→19:53)
--- NOTE | 2023-03-09 11:14 | NUR ---
Noted pt on carb controlled diet hx T2DM A1C 6.2% 01/05/23 admit DX acute renal failure w/ hx CKD IV and hyperkalemia per EMR. Pt w/ L foot eschar wound pending WOC assessment per EMR. SON josé MD regarding liberalizing to heart healthy diet if agreeable since pending initial PO trends. Will monitor for further nutrition intervention needs this admit. Addendum: 03/09/23 at [address] Amended: Links added.
[2023-03-09] MEDS ORDERED: insulin glargine (Lantus) pen - multi-dose SQ SCH (21:00)
[2023-03-10] MEDS: sodium bicarbonate (8.4%) inj. 50 MEQ in dextrose 5%-water 1,000 ML IV SCH ×2 (02:16→13:22)
[2023-03-10 06:00] VITALS: BP 165/90; PULSE 80; RESP 18; TEMP 98.1; O2SAT 97
[2023-03-10 06:06] LABS: BASOPHILS % (AUTO) 0.5 % (0-1); EOSINOPHILS # (AUTO) 0.1 X10'3 (0-0.9); EOSINOPHILS % (AUTO) 1.8 % (0-6); HEMATOCRIT 25.8 % (42.0-52.0); HEMOGLOBIN 8.5 g/dl (14.0-17.9); LYMPHOCYTES # (AUTO) 2.3 X10'3 (1.1-4.8); LYMPHOCYTES % (AUTO) 38.2 % (21-51); MEAN CORPUSCULAR HEMOGLOBIN 32.4 PG (27.0-31.0); MEAN CORPUSCULAR HGB CONC 32.9 g/dL (33.0-36.5); MEAN CORPUSCULAR VOLUME 98.4 FL (78-98); MEAN PLATELET VOLUME 8.9 FL (7.4-10.4); MONOCYTES # (AUTO) 0.6 X10'3 (0-0.9); MONOCYTES % (AUTO) 9.7 % (2-12); NEUTROPHILS % (AUTO) 49.8 % (42-75); PLATELET COUNT 146 X10'3 (140-440); RED BLOOD COUNT 2.63 X10'6 (4.70-6.10); RED CELL DISTRIBUTION WIDTH 15.3 % (11.5-14.5); WHITE BLOOD COUNT 6.1 X10'3 (4.5-11.0)
--- NOTE | 2023-03-10 06:34 | NUR ---
Problems reprioritized. Patient report given, questions answered & plan of care reviewed with MARIA ELENA. Addendum: 03/10/23 at 0634 by Dagoberto Ro RN Amended: Links added.
--- NOTE | 2023-03-10 06:37 | NUR ---
Patient in room ORTHO 4021. I have received report from Celio ARAMBULA and had the opportunity to ask questions and assume patient care.
[2023-03-10 06:41] LABS: ALANINE AMINOTRANSFERASE 35 U/L (12-78); ALBUMIN 3.1 G/DL (3.4-5.0); ALKALINE PHOSPHATASE 80 IU/L (46-116); ANION GAP 9 (8-16); ASPARTATE AMINO TRANSFERASE 19 U/L (10-37); BILIRUBIN,TOTAL 0.2 MG/DL (0.1-1.0); BLOOD UREA NITROGEN 39 MG/DL (7-18); BUN/CREATININE RATIO 28.3 (10.0-20.0); CALCIUM 8.6 MG/DL (8.5-10.1); CHLORIDE 110 MMOL/L (99-107); CREATININE 1.38 MG/DL (0.60-1.10); GLUCOSE 155 MG/DL (70-104); POTASSIUM 4.3 MMOL/L (3.5-5.1); SODIUM 139 MMOL/L (135-145); TOTAL PROTEIN 6.2 G/DL (6.4-8.2); eCRCL 41 ML/MIN; eGFR 49 ML/MIN
[2023-03-10] MEDS: docusate sod 100mg capsule PO SCH (07:51)
[2023-03-10] MEDS: heparin, porcine 5000 units/ml vial SQ SCH (07:52)
[2023-03-10 08:00] VITALS: RESP 18; O2SAT 97
[2023-03-10] MEDS: K and/or MAG REPLACEMENT MC SCH (08:00)
[2023-03-10] MEDS: acetaminophen 325mg tablet PO PRN (08:00)
[2023-03-10 10:00] VITALS: BP 134/68; PULSE 86; RESP 13; TEMP 97.9; O2SAT 94
--- NOTE | 2023-03-10 13:23 | NUR ---
PRESSURE ULCER EDUCATION: DEFINITION: A pressure ulcer is an area of skin that breaks down when you stay in one position too long. The constant pressure against the skin reduces the blood flow to that area and the affected tissue dies. CAUSES: "Being bedridden or in a wheelchair "Fragile skin "Having a chronic condition, such as diabetes or vascular disease "Inability to move certain parts of your body without assistance "Older age "Incontinence of urine or stool SYMPTOMS: "A reddened area that DOES NOT turn white when pressed on - this can be the beginning of a pressure ulcer "A blister, deep sore or a crater - these can be advanced pressure ulcers FIRST AID: "Relieve the pressure on this area "Keep the area clean and dry "Call your primary doctor if you see any of the above symptoms "DO NOT massage the area "DO NOT use a donut shaped or ring shaped pillow- these actually interfere with the blood flow and cause complications PREVENTION: "Check for pressure ulcers everyday "Change position at least every two hours to relieve pressure "Use items that help relieve pressure- pillows, sheepskin, foam padding, and powders. "Keep skin clean and dry "Eat healthy well balanced meals "Exercise daily IF YOU SEE ANY OF THESE SYMPTOMS WHILE IN THE HOSPITAL - TELL YOUR NURSE IMMEDIATELY. IF YOU SEE ANY OF THESE SYMPTOMS WHILE AT HOME OR HAVE ANY QUESTIONS OR CONCERNS ABOUT PRESSURE ULCERS - CALL YOUR PRIMARY DOCTOR IMMEDIATELY. Addendum: 03/10/23 at 1324 by Keren Gonsalves LVN Amended: Links added.
--- NOTE | 2023-03-10 13:59 | NUR ---
PAGER ID: [phone] MESSAGE: [id number]- Faye Davis PT worked with patient and cleared patient to me home. PLs advise? MITALI Del Cid [id number]
--- NOTE | 2023-03-10 14:30 | NUR ---
Patient discharged home today. IV removed and all belongings were gathered. All discharge instructions were explained and all questions were answered. Patient was alert and appropriate for discharge. Patient was wheeled downstairs and into private vehicle.
== END 2023-03-10 14:58 | disposition home health service (06) | DRG 683 ==
LOC: ER 15:21 → ED HOLD 22:03 → EDBEDREQTM 22:07 → EDBEDREQ 22:28 → ORTHO 4S 23:13
PROVIDERS: ADMIT Family Medicine; ATTEND Internal Medicine
DX: N17.9 Acute kidney failure, unspecified (principal); E87.20 Acidosis, unspecified; I50.22 Chronic systolic (congestive) heart failure; I13.0 Hypertensive heart and chronic kidney disease with heart failure and stage 1 through stage 4 chronic kidney disease, or unspecified chronic kidney disease; N18.4 Chronic kidney disease, stage 4 (severe); E87.5 Hyperkalemia; E83.42 Hypomagnesemia; I25.10 Atherosclerotic heart disease of native coronary artery without angina pectoris; N40.0 Benign prostatic hyperplasia without lower urinary tract symptoms; D64.9 Anemia, unspecified; I35.0 Nonrheumatic aortic (valve) stenosis; Z66 Do not resuscitate; K21.9 Gastro-esophageal reflux disease without esophagitis; L89.892 Pressure ulcer of other site, stage 2; E11.22 Type 2 diabetes mellitus with diabetic chronic kidney disease; I27.20 Pulmonary hypertension, unspecified; E78.5 Hyperlipidemia, unspecified; Z95.1 Presence of aortocoronary bypass graft; Z79.84 Long term (current) use of oral hypoglycemic drugs
CPT/HCPCS: 36415; 80048; 80053; 82948; 83735; 83880; 84100; 85025; 85610; 85730; 87081; 96374; 96375; 97116; 97161; 97530; 99285; G0378; J0610; J1644; J1815; J3490; J7070

== ENCOUNTER 2023-05-26 08:57 | Day surgery (SDC) | payer MEDICARE, MEDICAID ==
[2023-05-21 09:45] LABS: BASOPHILS # (AUTO) 0.1 X10'3 (0-0.2); BASOPHILS % (AUTO) 0.9 % (0-1); EOSINOPHILS # (AUTO) 0.1 X10'3 (0-0.9); EOSINOPHILS % (AUTO) 1.3 % (0-6); HEMATOCRIT 29.1 % (42.0-52.0); HEMOGLOBIN 9.3 g/dl (14.0-17.9); LYMPHOCYTES # (AUTO) 2.1 X10'3 (1.1-4.8); LYMPHOCYTES % (AUTO) 25.8 % (21-51); MEAN CORPUSCULAR HEMOGLOBIN 31.9 PG (27.0-31.0); MEAN CORPUSCULAR HGB CONC 32.1 g/dL (33.0-36.5); MEAN CORPUSCULAR VOLUME 99.5 FL (78-98); MEAN PLATELET VOLUME 8.7 FL (7.4-10.4); MONOCYTES # (AUTO) 0.7 X10'3 (0-0.9); MONOCYTES % (AUTO) 8.4 % (2-12); NEUTROPHILS # (AUTO) 5.1 X10'3 (1.8-7.7); NEUTROPHILS % (AUTO) 63.6 % (42-75); PLATELET COUNT 251 X10'3 (140-440); RED BLOOD COUNT 2.93 X10'6 (4.70-6.10)
[2023-05-21 10:13] LABS: ALBUMIN 3.4 G/DL (3.4-5.0); ANION GAP 11 (8-16); BLOOD UREA NITROGEN 40 MG/DL (7-18); BUN/CREATININE RATIO 26.7 (10.0-20.0); CALCIUM 8.8 MG/DL (8.5-10.1); CHLORIDE 110 MMOL/L (99-107); GLUCOSE 126 MG/DL (70-104); POTASSIUM 4.6 MMOL/L (3.5-5.1); SODIUM 139 MMOL/L (135-145); TOTAL CARBON DIOXIDE 18.2 MMOL/L (24-32); eGFR 45 ML/MIN
[2023-05-21 10:15] LABS: APTT 29 SECONDS (22-32)
[2023-05-26] VITALS (10 sets, daily range): BP systolic 147–165; BP diastolic 63–71; PULSE 69–81; RESP 13–16; TEMP 97.8; O2SAT 91–97
[~2023-05-26] VITALS: Ht 177.8 cm; Wt 87.5 kg
[2023-05-26] MEDS ORDERED: normal saline 1,000 ML IV SCH (09:30)
[2023-05-26] MEDS ORDERED: LORazepam 0.5 MG tablet PO PRN (09:30)
[2023-05-26] MEDS ORDERED: diphenhydrAMINE 25mg capsule PO PRN (09:30)
[2023-05-26] MEDS ORDERED: GABA300C PO (12:11)
[2023-05-26] MEDS ORDERED: CLOP-32 PO (12:11)
[2023-05-26] MEDS ORDERED: FLUT16SP2 BOTHNARES (12:11)
[2023-05-26] MEDS ORDERED: ACET-812 PO (12:11)
[2023-05-26] MEDS ORDERED: ASPI-611 PO (12:11)
[2023-05-26] MEDS ORDERED: heparin 1,000unit/ml 10ml vial 10 ML ONE (16:16)
[2023-05-26] MEDS ORDERED: phenylephrine 10mg/ml inj. -priapism dosing ONE (16:16)
[2023-05-26] MEDS ORDERED: LIDOcaine 1% (10mg/ml)w/preservative inj. 20ml MDV ONE (16:16)
[2023-05-26] MEDS ORDERED: DOPamine 400mg/D5W 250ml 0 ML IV ONE (16:17)
[2023-05-26] MEDS ORDERED: atropine 0.1mg/ml 10ml syringe ONE (16:17)
[2023-05-26] MEDS ORDERED: iohexol 350MG/ML 100ml bottle IV ONE (16:17)
[2023-05-26] MEDS ORDERED: heparin 1,000 UNITS/NS 500ml 500 ML ONE (16:54)
[2023-05-26] MEDS ORDERED: protamine sulfate 10mg/ml inj. ONE (17:44)
== END 2023-05-26 20:43 | disposition home or self-care (01) ==
LOC: SSTAY O 08:57
PROVIDERS: ATTEND Student in an Organized Health Care Education/Training Program
DX: I65.21 Occlusion and stenosis of right carotid artery (principal); E11.22 Type 2 diabetes mellitus with diabetic chronic kidney disease; I12.9 Hypertensive chronic kidney disease with stage 1 through stage 4 chronic kidney disease, or unspecified chronic kidney disease; N18.30 Chronic kidney disease, stage 3 unspecified; E78.5 Hyperlipidemia, unspecified; I25.10 Atherosclerotic heart disease of native coronary artery without angina pectoris; D64.9 Anemia, unspecified; Z95.1 Presence of aortocoronary bypass graft; Z79.899 Other long term (current) drug therapy; Z88.5 Allergy status to narcotic agent; Z88.8 Allergy status to other drugs, medicaments and biological substances; Z79.01 Long term (current) use of anticoagulants; Z79.82 Long term (current) use of aspirin
CPT/HCPCS: 36223; 36415; 80048; 82948; 85025; 85610; 85730; 93005; J1644; J2370; J2720; J3490; J7030; Q0163; Q9967; 36222; A4615; A6258; C1751; C1769; C1887; C1894; J0461; J1265

== ENCOUNTER 2024-06-09 08:34 | Day surgery (SDC) | payer MEDICARE, MEDICAID ==
[~2024-06-09] VITALS: Ht 177.8 cm; Wt 87.0 kg
[~2024-06-09 08:34] MED LIST changes: +ASCO-10 PO; -ASCO250T48 PO; +ASPI-611 PO; -ATOR40TA72 PO; -CARV-50 PO; +CLOP-32 PO; +EPOE200015; -FERR324T4 PO; +FLUT16SP2 BOTHNARES; +FURO-150 PO; +GABA300C PO; -GLIP5TAB26 PO; +INSU100C4 SQ; -INSU100I8 SQ; +LANTUS SUBCUT; +METO50TA16 PO; +PANT40TA54 PO; -TRAM50TA2 PO; +Vit B 12 INJ; +iron INJ
[2024-06-09] MEDS ORDERED: simethicone 40mg/0.6ml oral drops 30ml PO PRN (09:40)
[2024-06-09 09:57] VITALS: BP 159/73; PULSE 78; RESP 16; TEMP 97.8
[2024-06-09] MEDS ORDERED: fentaNYL/PF 50MCG/1 ML 2ML syringe ONE (10:55)
[2024-06-09] MEDS ORDERED: midazolam 1 mg/ML 2ml injection ONE (10:55)
[2024-06-09 11:16] VITALS: BP 122/67; PULSE 74; RESP 15; O2SAT 89
[2024-06-09] MEDS ORDERED: propofol inj 20 ML IV ONE (11:16)
[2024-06-09 11:30] VITALS: BP 121/61; PULSE 74; RESP 12; O2SAT 85
[2024-06-09 11:40] VITALS: BP 123/64; PULSE 81; RESP 15; O2SAT 95
[2024-06-09 11:50] VITALS: BP 135/68; PULSE 81; RESP 12; O2SAT 97
[2024-06-09 11:57] VITALS: BP 134/67; PULSE 70; RESP 12; O2SAT 99
== END 2024-06-09 12:02 | disposition home or self-care (01) ==
LOC: GI LAB 08:34
PROVIDERS: ATTEND Internal Medicine Gastroenterology
DX: D50.9 Iron deficiency anemia, unspecified (principal); K21.00 Gastro-esophageal reflux disease with esophagitis, without bleeding; K29.50 Unspecified chronic gastritis without bleeding; I13.0 Hypertensive heart and chronic kidney disease with heart failure and stage 1 through stage 4 chronic kidney disease, or unspecified chronic kidney disease; E11.22 Type 2 diabetes mellitus with diabetic chronic kidney disease; N18.4 Chronic kidney disease, stage 4 (severe); I50.9 Heart failure, unspecified; I25.119 Atherosclerotic heart disease of native coronary artery with unspecified angina pectoris; F41.9 Anxiety disorder, unspecified; F32.A Depression, unspecified; Z87.891 Personal history of nicotine dependence; Z95.5 Presence of coronary angioplasty implant and graft; Z88.5 Allergy status to narcotic agent
CPT/HCPCS: 43239; 82948; J2250; J2704; J3010; J7030; Z7512; 43235; 88305